=== PATIENT | female | born 1985 | race Caucasian/White ===

== ENCOUNTER 2025-01-01 08:49 | Day surgery (SDC) | payer BC ==
[2024-12-29 10:51] LABS: Absolute Lymphocytes (CBC) 2.5 K/uL (0.7-4.9); Hematocrit 37.9 % (36.0-45.0); Hemoglobin 12.9 g/dL (12.0-15.0); MCH 29.3 pg (27.0-35.0); MCHC 34.0 g/dL (32.0-36.0); MCV 86.0 fL (80-100); MPV 9.0 fL (7.6-11.3); Nucleated RBC Absolute Count 0.0 (0-0); Nucleated Red Blood Cells % 0.1 % (0-0); RBC Red Blood Cell Count 4.40 M/uL (3.86-4.86); White Blood Count 6.80 thou/uL (4.3-10.9)
[2024-12-29 11:09] LABS: Anion Gap 7.1 mEq/L (5.0-15.0); Glucose Level 85.0 mg/dL (74-106); Potassium 4.1 mEq/L (3.5-5.1)
[2024-12-29 11:10] LABS: BUN Blood Urea Nitrogen 18.0 mg/dL (7-18)
[2025-01-01] MEDS ORDERED: Ringers Lactate 1,000 ML IV ONE (09:13)
[2025-01-01] MEDS: BUPIVACAINE 0.5% PF 10 ML VIAL ONE (12:00)
[2025-01-01] MEDS ORDERED: LIDOCAINE 2% MPF 5 ML VIAL ONE (12:18)
[2025-01-01] MEDS ORDERED: LIDOCAINE 1% MPF 30 ML VIAL ONE (12:18)
[2025-01-01] MEDS ORDERED: NS 0.9% VIAL 30 ML ONE (12:18)
[2025-01-01] MEDS: ACETAMINOPHEN 500 MG TAB ONE (12:54)
--- NOTE | 2025-01-01 13:21 | OP ---
Date of Procedure: 01/01/2025 Surgeon: Cornelio Escalona MD Preoperative Diagnosis: Right trigger thumb. Postoperative Diagnosis: Right trigger thumb. Procedure: Right open trigger thumb release. Estimated Blood Loss: Less than 3 cc. Complications: There were no complications. Indications For Operation: Ms. Douglas is a patient who has been suffering with pain, stiffness, and tr iggering of her right thumb for some time. She saw me in my office where risks, benefits, and altern atives of different methods of treating have been discussed with her including the option of corticos teroid injection. She wishes to avoid any corticosteroid injection as she is and has c oncerns about any medications and at this time, desires operative intervention. Risks, benefits, and alternatives to this procedure have been discussed with her. She states she understands things as p resented and wishes to proceed. Description Of Procedure: The patient was taken to the operating room, placed in the supine position . A [place] block was established by Anesthesia staff and I will be monitoring this throughout the case as well as postoperatively. Following this, the right upper extremity was then prepped and draped i n usual sterile fashion for the procedure. The thumb flexion crease was marked out and a standard tr ansverse incision was made carefully through skin only. Meticulous hemostasis being maintained using bipolar electrocautery, although there was very little bleeding. Following this, the tendon and ten don sheath as well as the A1 vince identified. A small ricardo was made in the A1 vince and this was then divided in a proximal to distal direction until there were no constricting bands. It was then d ivided in a distal to proximal direction until no constricting bands. Following this, the thumb tend on moved freely with motion with no sign of triggering or abnormal tendon motion. Wounds gently irri gated and the skin was closed using nylon sutures. At no time were any sharp instruments placed outs john the direct operative field and sharp dissection was only used with the skin and also with divisio n of the A1 vince. A small amount of local anesthetic was also placed as the patient was placed in a well-padded sterile dressing, awakened, and taken to recovery room in good condition. There were n o complications. SE/MODL Voice ID: [id number] Report ID: [id number]
[2025-01-01 13:57] VITALS: BP 120/57; TEMP 98.8; O2SAT 100
== END 2025-01-01 14:02 | disposition home or self-care (01) ==
LOC: OR 08:49
PROVIDERS: ATTEND Orthopaedic Surgery
PROC: 0LN70ZZ Release Right Hand Tendon, Open Approach (ICD-10-PCS; principal; 2025-01-01 10:30)
DX: M65.311 Trigger thumb, right thumb (principal)
CPT/HCPCS: 93005; 85025; 80048; 36415; 26055; A4216; J2704; J2003 ×2; J7120